=== PATIENT | female | born 1975 | race Caucasian/White ===

== ENCOUNTER 2024-03-13 08:09 | Emergency (ER) | payer MEDICAID ==
[~2024-03-13] VITALS: Ht 157.5 cm; Wt 97.7 kg
[2024-03-13 08:26] VITALS: TEMP 97.9
[2024-03-13] MEDS ORDERED: ipratropium/albuterol 3ml nebule NEB ONE (08:40)
[2024-03-13 08:48] LABS: BASOPHILS # (AUTO) 0.1 X10'3 (0-0.2); BASOPHILS % (AUTO) 0.9 % (0-1); EOSINOPHILS # (AUTO) 0.1 X10'3 (0-0.9); EOSINOPHILS % (AUTO) 1.7 % (0-6); HEMATOCRIT 39.3 % (35.0-45.0); HEMOGLOBIN 12.9 g/dl (12.0-16.0); LYMPHOCYTES # (AUTO) 1.4 X10'3 (1.1-4.8); LYMPHOCYTES % (AUTO) 23.8 % (21-51); MEAN CORPUSCULAR HEMOGLOBIN 27.3 PG (27.0-31.0); MEAN CORPUSCULAR HGB CONC 32.8 g/dL (33.0-36.5); MEAN CORPUSCULAR VOLUME 83.4 FL (78-98); MEAN PLATELET VOLUME 7.4 FL (7.4-10.4); MONOCYTES # (AUTO) 0.5 X10'3 (0-0.9); MONOCYTES % (AUTO) 8.7 % (2-12); NEUTROPHILS # (AUTO) 3.7 X10'3 (1.8-7.7); NEUTROPHILS % (AUTO) 64.9 % (42-75); PLATELET COUNT 329 X10'3 (140-440); RED BLOOD COUNT 4.71 X10'6 (4.20-5.60); RED CELL DISTRIBUTION WIDTH 15.1 % (11.5-14.5); WHITE BLOOD COUNT 5.7 X10'3 (4.5-11.0)
[2024-03-13 09:09] LABS: ALANINE AMINOTRANSFERASE 29 U/L (12-78); ALBUMIN 3.3 G/DL (3.4-5.0); ALBUMIN/GLOBULIN RATIO 0.8 (1.1-1.5); ALKALINE PHOSPHATASE 121 IU/L (46-116); ANION GAP 7 (8-16); ASPARTATE AMINO TRANSFERASE 21 U/L (10-37); BILIRUBIN,TOTAL 0.4 MG/DL (0.1-1.0); BLOOD UREA NITROGEN 14 MG/DL (7-18); BUN/CREATININE RATIO 13.7 (10.0-20.0); CHLORIDE 103 MMOL/L (99-107); CREATININE 1.02 MG/DL (0.40-0.90); GLUCOSE 105 MG/DL (70-104); POTASSIUM 3.7 MMOL/L (3.5-5.1); SODIUM 139 MMOL/L (135-145); TOTAL CARBON DIOXIDE 29.3 MMOL/L (24-32); TOTAL PROTEIN 7.7 G/DL (6.4-8.2); eCRCL 53 ML/MIN; eGFR 58 ML/MIN
[2024-03-13 09:15] LABS: PRO BRAIN NATRIURETIC PEPTIDE 2658 PG/ML (0-125)
[2024-03-13 09:34] LABS: PROTHROMBIN TIME 10.6 SECONDS (9.0-12.0)
[2024-03-13] MEDS: methylPREDNISolone sod succ 125mg/2ml vial IV ONE ×2 (12:15→12:53)
[2024-03-13] MEDS: furosemide 40mg/4ml inj IV ONE (12:15)
[2024-03-13] MEDS: levalbuterol 1.25mg/0.5ml nebule IH ONE (12:32)
[2024-03-13] MEDS: ipratropium 0.5 MG/2.5ML nebule IH ONE (12:32)
[2024-03-13 12:35] VITALS: PULSE 79; RESP 16; O2SAT 98
[2024-03-13 12:52] VITALS: PULSE 79; RESP 48; O2SAT 100
[2024-03-13] MEDS: furosemide 10 MG/1 ML 10ml inj IV ONE (12:53)
[2024-03-13 14:28] VITALS: BP 160/98; PULSE 78; RESP 18; O2SAT 97
== END 2024-03-13 17:41 | disposition left against medical advice (07) ==
LOC: ER 08:10
DX: J44.1 Chronic obstructive pulmonary disease with (acute) exacerbation (principal); I50.9 Heart failure, unspecified; F17.200 Nicotine dependence, unspecified, uncomplicated; Z91.040 Latex allergy status
CPT/HCPCS: 36415; 71045; 80053; 83880; 84484; 85025; 85610; 93005; 94640; 96374; 96375; 99285; J1940; J2919; 94760; J7614